=== PATIENT | male | born 1980 | race Caucasian/White ===

== ENCOUNTER → 2024-10-29 17:45 | Outpatient (REF) | payer OTHER, SELFPAY | LOC: PAVMRI 17:45 | PROVIDERS: ATTENDING PHYSICIAN Orthopaedic Surgery; FAMILY PHYSICIAN Family Medicine | DX: M25.511 Pain in right shoulder (principal) | CPT/HCPCS: 73221 ==

== ENCOUNTER → 2025-06-05 12:48 | Outpatient (REF) | payer OTHER, SELFPAY | LOC: HWRAD 12:48 | PROVIDERS: ATTENDING PHYSICIAN Family Medicine | DX: R22.1 Localized swelling, mass and lump, neck (principal) | CPT/HCPCS: 76536 ==

== ENCOUNTER 2025-10-09 17:53 | Emergency (ER) | payer OTHER, SELFPAY ==
[2025-10-09 17:55] VITALS: BP 168/126
[2025-10-09 18:42] LABS: Hematocrit 44.6 % (39.0-52.0); Hemoglobin 15.5 g/dL (13.0-18.0); Mean Corp Hgb Conc. 34.8 g/dL (33.0-37.0); Mean Corpuscular Volume 89.0 fL (80.0-94.0); Nucleated Red Blood Cells % 0 % (-); Platelet Count 337 10^3/uL (130-400); Red Cell Dist. Width 12.3 % (11.5-14.5)
[2025-10-09 18:45] LABS: Urine Character Clear (Clear)
[2025-10-09 18:51] LABS: ALT (SGPT) 27 U/L (0-50); AST (SGOT) 31 U/L (17-59); Albumin 4.6 g/dl (3.5-5.0); Alkaline Phosphatase 94 U/L (38-126); Blood Urea Nitrogen 12 mg/dl (9-20); Calcium 9.4 mg/dl (8.4-10.2); Carbon Dioxide 27 mmol/L (22-30); Chloride 103 mmol/L (98-107); Glucose 95 mg/dl (70-99); Lipase 88 U/L (23-300); Potassium 4.3 mmol/L (3.5-5.1); Sodium 137 mmol/L (135-145); Total Protein 7.8 g/dl (6.3-8.2); eGFR > 60.00
--- NOTE | 2025-10-09 19:30 | ED.GENMED ---
History of Present Illness
General
Chief Complaint: Male Genito-Urinary Symptoms
Time Seen by Provider: 10/09/25 19:30
History of Present Illness
History of Present Illness:
FOCUSED PAST MEDICAL HISTORY
- Bipolar
REVIEW OF OLD RECORDS
- I reviewed records, the patient was getting physical therapy for neck pain in 2022
Note:
CHIEF COMPLAINT(S)
Left testicular discomfort associated with urination.
HISTORY OF PRESENT ILLNESS
The patient is a 45-year-old male who presents with a history of left testicular discomfort. The discomfort began approximately one to two days ago and is described as mild. The patient reports that the pain occurs specifically before urination and
resolves during and after urination. He notes that the pain lasts for approximately 10 seconds but he is not in pain at the moment. The patient denies any pain on the right side, and touching the testicular area does not exacerbate the discomfort.
There is a history of similar symptoms during intense physical activities in his youth. The patient took ibuprofen and acetaminophen initially but has not felt the need to take them today as the symptoms have lessened.
He denies any fever or other systemic symptoms. A previous episode resolved after the patient switched from boxers to briefs, as the discomfort was associated with running. The patient participated in running activities recently without an apparent
correlation to symptom onset.
PAST MEDICAL AND SURGICAL HISTORY
The patient recalls a similar episode during his time on the [employer] team in his youth when wearing boxers, which eventually resolved over a year.
PHYSICAL EXAM
General: Alert, no acute distress.
Skin: Warm, dry.
Head: Normocephalic, atraumatic.
Neck: Supple, trachea midline.
Eye, Ears, Nose, and Mouth: Oral mucosa moist.
Cardiovascular: Normal peripheral perfusion, No edema.
Respiratory: Respirations are non-labored.
Gastrointestinal: Abdomen nondistended and soft, non-tender.
: Unremarkable external genitalia, normal cremasteric reflex on the left, no symptoms testicular nor epididymal tenderness
Back: Normal range of motion, Normal alignment.
Musculoskeletal: Normal range of motion, normal strength.
Neurological: Alert and oriented to person, place, time, and situation, No focal neurological deficit observed.
Psychiatric: Cooperative, appropriate mood & affect.
PLAN
An ultrasound is to be conducted to assess blood flow to the testicles to rule out torsion. Blood work has already been performed indicating normal white cell count and kidney function. A urinalysis was also conducted, showing no signs of infection
or bleeding, ruling out a kidney stone. Observation and monitoring of symptoms are advised, with the patient to follow up after the ultrasound results.
DIFFERENTIAL DIAGNOSIS
The Differential Diagnosis includes, in no particular order and is not limited to:
1. Testicular torsion
2. Epididymitis
3. Inguinal hernia
4. Varicocele
5. Testicular trauma
6. Kidney stone
7. Testicular infection
8. Urinary tract infection
9. Orchitis
10. Hydrocele
SUMMARY OF ENCOUNTER
The patient was seen in the emergency department for left testicular discomfort associated with urination. An evaluation was performed, including an ultrasound, which indicated the presence of a hydrocele - an accumulation of fluid within the
scrotum. The hydrocele was not deemed an emergency requiring immediate surgical intervention. The patient was advised to follow up with a urologist for further evaluation and management.
PLAN
The patient is advised to follow up with a urologist to further evaluate the hydrocele and determine appropriate management. The contact information for Dr. Solorzano, a urologist, was provided to the patient for scheduling a follow-up appointment.
INDEPENDENT REVIEW OF LABS AND INTERPRETATION OF TESTS
- My independent interpretation of the ultrasound indicates a hydrocele, with no signs of an acute emergency requiring immediate surgical intervention.
PATIENT EDUCATION AND COUNSELING
The patient was informed about the diagnosis of a hydrocele, its commonality, and that it often does not cause significant problems. It was explained that the current findings do not necessitate emergency surgery, but further evaluation by a
urologist is recommended.
FOLLOW-UP INSTRUCTIONS
The patient was instructed to contact Dr. Aguilar office for a follow-up appointment with a urologist to assess the hydrocele further.
MEDICAL DECISION MAKING
- Number and Complexity of Problems Addressed: Testicular discomfort suspected related to hydrocele.
- Data:
- Category 1: My independent interpretation of the ultrasound indicates a hydrocele.
- Risk: Consideration of admission/observation was not necessary as the work-up determined no acute life/organ-threatening process. The patients symptoms are well-controlled, with stable reexamination findings agreeing with outpatient management and
follow-up instructions given.
DIAGNOSIS
1. Hydrocele - ICD-10 code N43.3
RADIOLOGY
- Ultrasound shows left greater than right hydroceles
LABS
- CBC and chemistries unremarkable, urinalysis normal
UPDATE
- Testicular pain that primarily occurs just before urination
- Unremarkable labs and urinalysis
- Testicular ultrasound obtained which shows hydroceles
- To follow-up with Dr. Solorzano
Past History
Past History
ED Past Medical History: Psychiatric (bipolar, schizoaffective disorder) and Other (Esophageal ring)
ED Past Surgical History: Other (Esophageal dilatation)
Social History
Personal:
Living: with family
Employment: Disabled
Family History
Family History: Other (Noncontributory)
Phy Exam
Physical Exam
Physical Exam:
See HPI
Course
Orders/Labs/Results
Orders:
Orders
10/09/25 18:24
Complete Blood Count/With Diff Urgent
Comprehensive Metabolic Panel Urgent
Lipase Urgent
Urinalysis Reflex To Culture Urgent
Date Specimen was Collected: 10/09/25
Time Specimen was Collected: 17:58
10/09/25 19:19
US Scrotum Urgent
Comment:
Reason For Exam: left testicle pain
Abnormal Lab Results
10/09/25
18:24
Absolute Monos (auto) 0.9 H 10^3/uL
(0.1-0.6)
Monocytes % 9.8 H %
(1.7-9.3)
10/09/25 18:24
10/09/25 18:24
Vital Signs
Initial and Last Documented VS:
Initial Vital Signs
Temp Pulse Resp BP Pulse Ox
36.9 C 85 18 168/126 97
10/09/25 17:55 10/09/25 17:55 10/09/25 17:55 10/09/25 17:55 10/09/25 17:55
Last Documented Vital Signs
Temp Pulse Resp BP Pulse Ox
36.9 C 85 18 168/126 97
10/09/25 17:55 10/09/25 17:55 10/09/25 17:55 10/09/25 17:55 10/09/25 19:31
*Pulse Oximetry
SaO2: 97
Oxygen Mode of Delivery: Room air
Patient hypoxic: no
*Critical Care Note
Total Time (30-74mins, 75-104mins- exclusive of procedures): Not Applicable
ED Attending Note
-
Portions of this chart may have been created with voice recognition software.� Occasional wrong word or��sound alike� substitutions may have occurred due to the inherent limitations of voice recognition software.
Discharge Plan
Departure
Patient Disposition: Home (Routine Discharge)
Date of Disposition: 10/09/25
Time of Disposition: 21:30
Patient with high blood pressure during this ER visit?: Yes
Discharge Problem:
Hydrocele
Instructions: Hydrocele, BLOOD PRESSURE
Prescriptions:
No Action
zolpidem 10 MG tablet
12.5 mg PO HSPRN PRN (Reason: insomina)
clonazepam 1 MG tablet
3 mg PO HS
omeprazole 40 MG capsule,delayed release(DR/EC)
40 mg PO DAILY
cariprazine [Vraylar] 6 MG capsule
6 mg PO DAILY
trazodone 100 MG tablet
100 mg PO QPM
lumateperone [Caplyta] 42 MG capsule
42 mg PO QPM
Referrals:
Pj Solorzano MD [Active, Urology]
Waqar Urrutia MD [Family Provider, Family Practice]
Activity Restrictions/Additional Instructions:
You have hydroceles on both sides in your scrotum, the one on the left is described as moderate to large and the 1 on the right is described as small to moderate in size. Blood work and urinalysis are unremarkable. I have given you the information
for local urology (Dr. Solorzano) you could follow-up with.
Interventions
Interventions:
*Risk Screen - Suicide Last Done: 10/09/25 17:55
*General Assessment Last Done: 10/09/25 20:12
*ED COVID-19 Vaccine History Last Done: 10/09/25 20:12
*ED Influenza Vaccine History Last Done: 10/09/25 17:55
[facility] Fall Risk Assessment Tool Last Done: 10/09/25 20:12
ED-Male Genitourinary Assessment Last Done: 10/09/25 20:12
Discharge Date and Time
Print Language: AMHARIC
[2025-10-09 21:42] VITALS: BP 166/100
== END 2025-10-09 21:58 | disposition home or self-care (01) ==
LOC: EMR 17:53
PROVIDERS: Student in an Organized Health Care Education/Training Program; EMERGENCY PHYSICIAN Emergency Medicine; FAMILY PHYSICIAN Family Medicine
DX: N43.3 Hydrocele, unspecified (principal); F31.9 Bipolar disorder, unspecified; F25.9 Schizoaffective disorder, unspecified
CPT/HCPCS: 99284; 76870; 80053; 81003; 83690; 85025; 93976